=== PATIENT | male | born 1955 ===

== ENCOUNTER 2021-03-09 21:02 | Emergency (ER) | payer MEDICARE, OTHER ==
[~2021-03-09] VITALS: Ht 172.7 cm; Wt 65.8 kg
--- NOTE | 2021-03-09 21:28 | NUR ---
Patient BIB [facility] from unknown name board and care facility for possible unwitnessed seizure. Per report patient was found laying down on lobby floor agitated and confused. No SOB or labored breathing. Pt is deaf but able to communicate with hand writting. Afebrile. Denies CP/pressure. A/O x3.
--- NOTE | 2021-03-09 21:30 | NUR ---
Dr. sepulveda at bedside, MSE in progress.
[2021-03-09] MEDS ORDERED: IV NORMAL SALINE 1000 ML BAG IV ONE (21:45)
--- NOTE | 2021-03-09 21:53 | NUR ---
LAB AND XRAY AT BEDSIDE.
[2021-03-09 22:20] LABS: ETHANOL < 3 MG/DL (0-0)
[2021-03-09 22:21] LABS: CARBON DIOXIDE 26 mmol/L (21-32); CHLORIDE 108 mmol/L (98-107); GLUCOSE 91 mg/dL (74-106); POTASSIUM 4.1 mmol/L (3.5-5.1); UREA NITROGEN, BLOOD 15 mg/dL (7-18)
[2021-03-09 22:38] LABS: ALANINE AMINOTRANSFERASE 12 U/L (16-63); ALKALINE PHOSPHATASE 68 U/L (50-136); ASPARTATE AMINOTRANSFERASE 15 U/L (15-37); BILIRUBIN,DIRECT 0.1 mg/dL (0.0-0.2); BILIRUBIN,TOTAL 0.4 mg/dL (0.2-1.0)
[2021-03-09 22:59] LABS: MAGNESIUM 2.2 mg/dL (1.8-2.4); PHOSPHOROUS 3.2 mg/dL (2.5-4.9); VALPROIC ACID 88 ug/mL (50-100)
[2021-03-09 23:00] LABS: PHENYTOIN (DILANTIN) < 0.5 ug/mL (10.0-20.0)
[2021-03-09 23:27] LABS: HEMATOCRIT 43.2 % (36.7-47.1); MEAN CORPUSCULAR HEMOGLOBIN 33.3 uug (23.8-33.4); MEAN CORPUSCULAR VOLUME 99.9 fL (73.0-96.2); PLATELET COUNT (AUTO) 101 K/uL (152-348)
[2021-03-09] MEDS ORDERED: PHENYTOIN SODIUM IV 1,000 MG in IV NORMAL SALINE 100 ML IV ONE (23:30)
[2021-03-09] MEDS ORDERED: PHENYTOIN SODIUM 250 MG/5 ML VIAL IV ONE (23:41)
--- NOTE | 2021-03-10 00:05 | NUR ---
Assisted resident to use urinal, denies pain while urinating.
[2021-03-10] MEDS ORDERED: SULF1TAB48 PO (00:43)
--- NOTE | 2021-03-10 01:00 | NUR ---
Called [facility] and spoke with Mark, made aware that patient is returning to facility.
--- NOTE | 2021-03-10 01:05 | NUR ---
Called [facility], spoke with Chirag, provided ETA of 75-90 mins.
[2021-03-10] MEDS ORDERED: LORAZEPAM 2 MG/1 ML VIAL IM ONE (02:00)
[2021-03-10] MEDS ORDERED: LORAZEPAM 2 MG/1 ML VIAL ONE (02:06)
--- NOTE | 2021-03-10 03:00 | NUR ---
Patient discharged to home in stable condition. A/O x3, able to write down needs, denies pain/discomfort. Steady gait. Written and verbal after care instructions given. Patient verbalizes understanding of instructions. Stressed follow up or return to ER for worsening s/s. [facility] picked up patient.
[2021-03-10 03:19] VITALS: BP 92/62
== END 2021-03-10 02:50 ==
LOC: ER 21:07
DX: G40.409 Other generalized epilepsy and epileptic syndromes, not intractable, without status epilepticus (principal); S23.41XA Sprain of ribs, initial encounter; X58.XXXA Exposure to other specified factors, initial encounter; Y92.099 Unspecified place in other non-institutional residence as the place of occurrence of the external cause; S53.402A Unspecified sprain of left elbow, initial encounter; S93.401A Sprain of unspecified ligament of right ankle, initial encounter; S09.90XA Unspecified injury of head, initial encounter; I10 Essential (primary) hypertension; H91.3 Deaf nonspeaking, not elsewhere classified; E78.5 Hyperlipidemia, unspecified
CPT/HCPCS: 36415; 70450; 71045; 71101; 72125; 73080; 73564; 73610; 80048; 80076; 80164; 80185; 80320; 83735; 83880; 84100; 84484; 85025; 85730; 93005; 96361; 96372; 96374; 99291; J1165; J2060; 70030-TC; A4663; C1758; G0480; J3490; J7030